=== PATIENT | female | born 1980 | race African-American/Black ===

== ENCOUNTER 2016-06-21 08:04 | Emergency (ER) | payer OTHER ==
[~2016-06-21] VITALS: Ht 170.2 cm; Wt 72.4 kg
[~2016-06-21 08:04] MED LIST: ALBUTEROL SULF8.5 GM IH; AMOXICILLIN500 M1 PO; CIPRO500 MG PO; CLEOCIN300 MG PO; ENDOCET 5-3251 EACH PO; FLAGYL500 MG PO; IBUPROFEN800 MG PO; KEFLEX500 MG PO; MEDROL DOSEPAK4 MG PO; MEGACE20 MG PO; MILK OF MAGN PO; MIRALAX17 GM PO; MOTRIN600 MG PO; MOTRIN800 MG PO; NAPROSYN500 MG PO; NOHOMEMEDS; NORCO 5/3251 TABLET PO; PERCOCET 5/31 TABLET PO; PROMETHAZINE HC25 M1 PO; ROBITUSSIN AC,T10 ML PO; TESSALON200 MG PO; TRAMADOL HCL50 MG PO; TYLENOL WITH C1 EACH PO; ULTRAM50 MG PO; VENTOLIN HFA18 GM IH; VIBRAMYCIN100 MG PO; ZITHROMAX Z-PA250 MG PO; ZITHROMAX500 MG PO; ZOFRAN4 MG PO
[2016-06-21] MEDS ORDERED: SUDAFED 12-HOU120 MG PO (08:19)
[2016-06-21 08:33] VITALS: BP 118/52
== END 2016-06-21 08:34 | disposition home or self-care (01) ==
LOC: EME 08:04 → EXP 08:04
DX: J32.9 Chronic sinusitis, unspecified (principal); F17.200 Nicotine dependence, unspecified, uncomplicated
CPT/HCPCS: 99281; 99284

== ENCOUNTER 2016-06-26 13:26 | Emergency (ER) | payer OTHER ==
[~2016-06-26] VITALS: Ht 170.2 cm; Wt 67.4 kg
[~2016-06-26 13:26] MED LIST changes: +SUDAFED 12-HOU120 MG PO
[2016-06-26 14:00] LABS: HEMATOCRIT 35.9 % (36.0-46.0); MCH 30.1 PG (29.0-34.0); MCHC 35.1 G/DL (30.0-36.0); MCV 85.9 FL (83-99); MEAN PLAT.VOLUME 8.6 uM^3 (9.5-12.4); PLATELET COUNT 303 K/uL (156-360); RBC DIS.WIDTH-CV 13.8 % (11.8-14.6); RBC DIS.WIDTH-SD 42.4 % (39-53); RED BLOOD COUNT 4.18 M/uL (3.80-5.20); WHITE BLOOD COUNT 6.3 K/uL (4.1-10.2)
[2016-06-26 14:08] LABS: CHLORIDE 105 mEq/L (99-109); POTASSIUM 3.5 mEq/L (3.7-5.4); SODIUM 138 mEq/L (136-147)
[2016-06-26 14:10] LABS: GLUCOSE 89 mg/dL (70-99)
[2016-06-26 14:12] LABS: ANION GAP 12 MEQ/L (2-14)
[2016-06-26 14:14] LABS: GFR ESTIMATE (CALCULATED) > 59 mL/min/
[2016-06-26 14:15] LABS: UREA NITROGEN (BUN) 10 mg/dL (9-23)
[2016-06-26 14:46] LABS: ERTH.SED.RATE 7 MM/HR (0-20)
[2016-06-26 14:51] LABS: INTERNAL CONTROL VALID? YES; MONOSPOT (MONONUCLEOSIS SEROL) NEGATIVE
[2016-06-26 15:31] LABS: INFLUENZA A VIRAL ANTIGEN NEGATIVE; INFLUENZA B VIRAL ANTIGEN POSITIVE
[2016-06-26] MEDS ORDERED: FIORICET WI1 CAPSULE PO (16:34)
[2016-06-26] MEDS ORDERED: TAMIFLU75 MG PO (16:34)
[2016-06-26] MEDS ORDERED: MEDROL DOSEPAK4 MG PO (16:34)
[2016-06-26 16:53] VITALS: BP 107/69
== END 2016-06-26 16:54 | disposition home or self-care (01) ==
LOC: EME 13:26
PROVIDERS: Emergency Medicine
DX: J11.1 Influenza due to unidentified influenza virus with other respiratory manifestations (principal); R51 Headache; F17.200 Nicotine dependence, unspecified, uncomplicated; Z88.5 Allergy status to narcotic agent
CPT/HCPCS: 70450; 71020; 80048; 85027; 85651; 86308; 87502; 99281; 99285; J1100; J1170; J1885; J2765; J7030

== ENCOUNTER 2016-07-07 22:35 | Emergency (ER) | payer OTHER ==
[~2016-07-07] VITALS: Ht 167.6 cm; Wt 69.5 kg
[~2016-07-07 22:35] MED LIST changes: +FIORICET WI1 CAPSULE PO; +TAMIFLU75 MG PO
[2016-07-07 23:26] LABS: HEMATOCRIT 35.6 % (36.0-46.0); MCH 29.6 PG (29.0-34.0); MCHC 34.3 G/DL (30.0-36.0); MCV 86.4 FL (83-99); RBC DIS.WIDTH-SD 43.5 % (39-53); RED BLOOD COUNT 4.12 M/uL (3.80-5.20); WHITE BLOOD COUNT 4.6 K/uL (4.1-10.2)
[2016-07-07 23:36] LABS: CHLORIDE 107 mEq/L (99-109); POTASSIUM 3.8 mEq/L (3.7-5.4); SODIUM 137 mEq/L (136-147)
[2016-07-07 23:38] LABS: GLUCOSE 97 mg/dL (70-99)
[2016-07-07 23:39] LABS: ANION GAP 7 MEQ/L (2-14)
[2016-07-07 23:42] LABS: GFR ESTIMATE (CALCULATED) > 59 mL/min/; UREA NITROGEN (BUN) 14 mg/dL (9-23)
[2016-07-07 23:50] LABS: QUANTITATIVE HCG < 4.0 MIU/ML
[2016-07-08 00:07] LABS: TOTAL BILIRUBIN 0.2 mg/dL (0.0-1.0)
[2016-07-08 00:08] LABS: ALKALINE PHOSPHATASE 52 IU/L (3-129)
[2016-07-08 00:11] LABS: DIRECT BILIRUBIN 0.1 mg/dL (0.0-0.3)
[2016-07-08 00:12] LABS: LIPASE 40 U/L (1.0-51.0)
[2016-07-08 00:31] LABS: MEAN PLAT.VOLUME ND uM^3 (9.5-12.4); PLATELET COUNT ND K/uL (156-360)
[2016-07-08] MEDS ORDERED: ZOFRAN4 MG PO (01:26)
[2016-07-08] MEDS ORDERED: OMEPRAZOLE20 M2 PO (01:26)
[2016-07-08 02:24] VITALS: BP 120/68
== END 2016-07-08 02:25 | disposition home or self-care (01) ==
LOC: EME 22:35
DX: R10.10 Upper abdominal pain, unspecified (principal); R11.2 Nausea with vomiting, unspecified; F17.200 Nicotine dependence, unspecified, uncomplicated
CPT/HCPCS: 74177; 80048; 80076; 83690; 84702; 85027; 86850; 86900; 86901; 99281; 99285; C9113; J1200; J2405; J2765; J7030

== ENCOUNTER 2016-08-17 21:51 | Emergency (ER) | payer OTHER ==
[~2016-08-17] VITALS: Ht 167.6 cm; Wt 67.9 kg
[~2016-08-17 21:51] MED LIST changes: +OMEPRAZOLE20 M2 PO
[2016-08-17 22:43] LABS: MCH 30.1 PG (29.0-34.0); MCV 88.6 FL (83-99); MEAN PLAT.VOLUME 8.8 uM^3 (9.5-12.4); PLATELET COUNT 345 K/uL (156-360); RBC DIS.WIDTH-CV 14.4 % (11.8-14.6); RBC DIS.WIDTH-SD 46.6 % (39-53); RED BLOOD COUNT 3.95 M/uL (3.80-5.20); WHITE BLOOD COUNT 6.5 K/uL (4.1-10.2)
[2016-08-17 22:54] LABS: CHLORIDE 108 mEq/L (99-109); POTASSIUM 3.8 mEq/L (3.7-5.4); SODIUM 139 mEq/L (136-147)
[2016-08-17 22:55] LABS: GLUCOSE 97 mg/dL (70-99)
[2016-08-17 22:57] LABS: ANION GAP 8 MEQ/L (2-14)
[2016-08-17 22:59] LABS: GFR ESTIMATE (CALCULATED) > 59 mL/min/
[2016-08-17 23:00] LABS: UREA NITROGEN (BUN) 14 mg/dL (9-23)
[2016-08-17 23:12] LABS: QUANTITATIVE HCG < 4.0 MIU/ML
[2016-08-17 23:42] LABS: ADD MIUA? YES; BILIRUBIN NEGATIVE; BLOOD MODERATE; COLOR YELLOW ((YELLOW)); GLUCOSE (STRIP) NEGATIVE; KETONES NEGATIVE; LEUKOCYTES SMALL; NITRITE NEGATIVE; PROTEIN (STRIP) NEGATIVE; SPECIFIC GRAVITY 1.025 (1.000-1.030); UROBILINOGEN 0.2 MG/DL (0.2-1.0)
[2016-08-17 23:53] LABS: BACTERIA NONE SEEN /HPF; EPITHELIAL CELLS 1+ /HPF; MUCUS 1+ /LPF; UCUL ADDED? NO
[2016-08-18 00:23] VITALS: BP 103/58
== END 2016-08-18 00:26 | disposition home or self-care (01) ==
LOC: EME 21:51
PROVIDERS: Physician Assistant
DX: K92.2 Gastrointestinal hemorrhage, unspecified (principal); F17.200 Nicotine dependence, unspecified, uncomplicated
CPT/HCPCS: 80048; 81003; 84702; 85027; 99281; 99284

== ENCOUNTER 2016-08-20 17:46 | Emergency (ER) | payer OTHER ==
[~2016-08-20] VITALS: Ht 167.6 cm; Wt 66.9 kg
[2016-08-20 19:35] VITALS: BP 100/61
[2016-08-20] MEDS ORDERED: MOBIC7.5 MG PO (19:59)
[2016-08-20] MEDS ORDERED: FLEXERIL10 MG PO (19:59)
[2016-08-20] MEDS ORDERED: ULTRAM50 MG PO (19:59)
== END 2016-08-20 20:15 | disposition home or self-care (01) ==
LOC: EME 17:46
DX: M54.6 Pain in thoracic spine (principal); R06.02 Shortness of breath
CPT/HCPCS: 71020; 99281; 99283

== ENCOUNTER 2017-01-28 21:50 | Emergency (ER) | payer OTHER ==
[~2017-01-28] VITALS: Ht 167.6 cm; Wt 65.1 kg
[~2017-01-28 21:50] MED LIST changes: +FLEXERIL10 MG PO; +MOBIC7.5 MG PO
[2017-01-28 23:06] LABS: ADD MIUA? YES; BILIRUBIN NEGATIVE; BLOOD MODERATE; COLOR YELLOW ((YELLOW)); GLUCOSE (STRIP) NEGATIVE; KETONES NEGATIVE; LEUKOCYTES LARGE; NITRITE NEGATIVE; PROTEIN (STRIP) 30; SPECIFIC GRAVITY 1.027 (1.000-1.030); UROBILINOGEN 0.2 MG/DL (0.2-1.0)
[2017-01-28 23:28] LABS: QUANTITATIVE HCG < 4.0 MIU/ML
[2017-01-28 23:56] LABS: BACTERIA RARE /HPF; EPITHELIAL CELLS 2+ /HPF; MUCUS 3+ /LPF; UCUL ADDED? YES; WHITE BLOOD CELLS 15-20 /HPF (0-5)
[2017-01-29 00:13] LABS: HEMATOCRIT 38.8 % (36.0-46.0); MCH 30.3 PG (29.0-34.0); MCHC 34.3 G/DL (30.0-36.0); MCV 88.4 FL (83-99); MEAN PLAT.VOLUME 9.1 uM^3 (9.5-12.4); PLATELET COUNT 324 K/uL (156-360); RBC DIS.WIDTH-SD 45.3 % (39-53); RED BLOOD COUNT 4.39 M/uL (3.80-5.20); WHITE BLOOD COUNT 7.8 K/uL (4.1-10.2)
[2017-01-29 00:16] LABS: CHLORIDE 105 mEq/L (99-109); POTASSIUM 3.7 mEq/L (3.7-5.4); SODIUM 140 mEq/L (136-147)
[2017-01-29 00:18] LABS: GLUCOSE 85 mg/dL (70-99)
[2017-01-29 00:20] LABS: ANION GAP 13 MEQ/L (2-14); TOTAL BILIRUBIN 0.4 mg/dL (0.0-1.0)
[2017-01-29 00:22] LABS: ALKALINE PHOSPHATASE 53 IU/L (3-129); GFR ESTIMATE (CALCULATED) > 59 mL/min/
[2017-01-29 00:23] LABS: UREA NITROGEN (BUN) 13 mg/dL (9-23)
[2017-01-29 00:26] LABS: LIPASE 22 U/L (1.0-51.0)
[2017-01-29] MEDS ORDERED: CIPRO500 MG PO (02:32)
[2017-01-29 02:38] VITALS: BP 109/71
[2017-01-29] MEDS ORDERED: NORCO 5/3251 TABLET PO (02:40)
== END 2017-01-29 02:50 | disposition home or self-care (01) ==
LOC: EME 21:50
DX: N39.0 Urinary tract infection, site not specified (principal); R10.9 Unspecified abdominal pain; M54.9 Dorsalgia, unspecified; G89.29 Other chronic pain; F17.200 Nicotine dependence, unspecified, uncomplicated
CPT/HCPCS: 80053; 81003; 83690; 84702; 85027; 87077; 87086; 87186; 99281; 99285; J2270

== ENCOUNTER 2017-02-13 12:31 | Emergency (ER) | payer OTHER ==
[~2017-02-13] VITALS: Ht 167.6 cm; Wt 65.7 kg
[2017-02-13] MEDS ORDERED: PERCOCET 5/31 TABLET PO (13:42)
[2017-02-13] MEDS ORDERED: PEN-VEE K,VEET500 MG PO (13:42)
[2017-02-13] MEDS ORDERED: NAPROSYN500 MG PO (13:42)
[2017-02-13 14:05] VITALS: BP 110/70
== END 2017-02-13 14:06 | disposition home or self-care (01) ==
LOC: EME 12:31
DX: K04.7 Periapical abscess without sinus (principal)
CPT/HCPCS: 99281; 99283

== ENCOUNTER 2017-05-26 02:39 | Emergency (ER) | payer OTHER ==
[~2017-05-26] VITALS: Ht 167.6 cm; Wt 68.4 kg
[~2017-05-26 02:39] MED LIST changes: +PEN-VEE K,VEET500 MG PO
[2017-05-26 03:09] LABS: HEMATOCRIT 37.6 % (36.0-46.0); MCH 30.2 PG (29.0-34.0); MCHC 33.8 G/DL (30.0-36.0); MCV 89.3 FL (83-99); RBC DIS.WIDTH-CV 14.8 % (11.8-14.6); RBC DIS.WIDTH-SD 48.2 % (39-53); RED BLOOD COUNT 4.21 M/uL (3.80-5.20); WHITE BLOOD COUNT 10.5 K/uL (4.1-10.2)
[2017-05-26 03:17] LABS: CHLORIDE 101 mEq/L (99-109); POTASSIUM 3.4 mEq/L (3.7-5.4); SODIUM 135 mEq/L (136-147)
[2017-05-26 03:18] LABS: GLUCOSE 78 mg/dL (70-99)
[2017-05-26 03:20] LABS: ANION GAP 8 MEQ/L (2-14)
[2017-05-26 03:22] LABS: GFR ESTIMATE (CALCULATED) > 59 mL/min/
[2017-05-26 03:23] LABS: UREA NITROGEN (BUN) 10 mg/dL (9-23)
[2017-05-26 03:41] LABS: MEAN PLAT.VOLUME 9.9 uM^3 (9.5-12.4); PLAT.SUFFICIENCY ADEQUATE; PLATELET COUNT 246 K/uL (156-360)
[2017-05-26] MEDS ORDERED: AZITHROMYCIN250 MG PO (06:08)
[2017-05-26] MEDS ORDERED: SUDAFED PE PRE1 EACH PO (06:10)
[2017-05-26 06:24] VITALS: BP 101/65
== END 2017-05-26 06:24 | disposition home or self-care (01) ==
LOC: EME 02:39
DX: J20.9 Acute bronchitis, unspecified (principal); J06.9 Acute upper respiratory infection, unspecified; H92.09 Otalgia, unspecified ear; Z87.891 Personal history of nicotine dependence
CPT/HCPCS: 71020; 80048; 85027; 94640; 99281; 99283

== ENCOUNTER 2017-06-05 11:20 | Emergency (ER) | payer OTHER ==
[~2017-06-05] VITALS: Ht 160 cm; Wt 65.1 kg
[~2017-06-05 11:20] MED LIST changes: +AZITHROMYCIN250 MG PO; +SUDAFED PE PRE1 EACH PO
[2017-06-05 12:48] LABS: HEMATOCRIT 40.1 % (36.0-46.0); HEMOGLOBIN 13.7 G/DL (11.9-15.5); MCH 30.4 PG (29.0-34.0); MCHC 34.2 G/DL (30.0-36.0); MCV 88.9 FL (83-99); RBC DIS.WIDTH-SD 45.2 % (39-53); RED BLOOD COUNT 4.51 M/uL (3.80-5.20)
[2017-06-05 12:55] LABS: PLATELET COUNT 340 K/uL (156-360)
[2017-06-05 13:01] LABS: ALBUMIN 4.1 g/dL (3.2-4.8)
[2017-06-05 13:02] LABS: CHLORIDE 105 mEq/L (99-109); POTASSIUM 3.3 mEq/L (3.7-5.4); SODIUM 138 mEq/L (136-147)
[2017-06-05 13:04] LABS: GLUCOSE 83 mg/dL (70-99); TOTAL PROTEIN 7.4 g/dL (6.4-8.3)
[2017-06-05 13:06] LABS: TOTAL BILIRUBIN 0.2 mg/dL (0.0-1.0)
[2017-06-05 13:07] LABS: ALKALINE PHOSPHATASE 53 IU/L (3-129)
[2017-06-05 13:08] LABS: CREATININE 0.7 mg/dL (0.6-1.3); GFR ESTIMATE (CALCULATED) > 59 mL/min/
[2017-06-05 13:09] LABS: AST (GOT) 16 IU/L (2-34); UREA NITROGEN (BUN) 17 mg/dL (9-23)
[2017-06-05 13:11] LABS: ALT (GPT) 9 IU/L (3-49)
[2017-06-05 13:17] LABS: QUANTITATIVE HCG < 4.0 MIU/ML
[2017-06-05 13:38] LABS: APPEARANCE SL.HAZY ((CLEAR)); BILIRUBIN NEGATIVE; BLOOD MODERATE; COLOR YELLOW ((YELLOW)); GLUCOSE (STRIP) NEGATIVE; KETONES NEGATIVE; LEUKOCYTES TRACE; NITRITE NEGATIVE; PROTEIN (STRIP) NEGATIVE; SPECIFIC GRAVITY 1.023 (1.000-1.030); UROBILINOGEN 0.2 MG/DL (0.2-1.0)
[2017-06-05 13:48] LABS: BACTERIA RARE /HPF; EPITHELIAL CELLS 2+ /HPF; MUCUS 1+ /LPF; RED BLOOD CELLS 30-40 /HPF (0-5); UCUL ADDED? YES
[2017-06-05] MEDS ORDERED: MOTRIN600 MG PO (17:50)
[2017-06-05] MEDS ORDERED: ZOFRAN4 MG PO (17:50)
[2017-06-05] MEDS ORDERED: BACTRIM,SEPT1 TABLET PO (17:50)
[2017-06-05 18:44] VITALS: BP 102/69
== END 2017-06-05 18:45 | disposition home or self-care (01) ==
LOC: EME 11:20
DX: N39.0 Urinary tract infection, site not specified (principal); Z87.891 Personal history of nicotine dependence; Z88.5 Allergy status to narcotic agent
CPT/HCPCS: 74176; 80053; 81003; 84702; 85027; 87086; 99281; 99285; J1885; J2405; J7030